=== PATIENT | male | born 1985 | race African-American/Black ===

== ENCOUNTER 2022-06-06 10:54 | Emergency (ER) | payer MEDICAID, SELFPAY ==
[2022-06-06 10:57] VITALS: BP 106/57; PULSE 74; RESP 16; TEMP 36.8; O2SAT 98; BMI 22.6
[2022-06-06 11:18] LABS: Appearance Urine Clear; Color Urine Yellow; Glucose Urine UA Negative (Negative); Leukocyte Esterase Urine Trace (Negative); Nitrite Urine Negative (Negative); Specific Gravity - Urine 1.025 (1.005-1.025); UMIC TRIGGER UACC YES; Urine Blood Negative (Negative); Urine Ketones Trace mg/dL (Negative); Urine Protein Negative (Neg-Trace)
[2022-06-06 11:24] LABS: Bacteria Urine None Seen (None Seen); Hyaline Casts Urine 0-2 /LPF (0-2); RBC Urine 0-2 /HPF (0-2); Squamous Epithelial Cell Urine 0-2 /HPF (0-2); WBC Urine 0-5 /HPF (0-5)
[2022-06-06] MEDS: Azithromycin 500 MG TABLET 1000 MG PO (12:01)
[2022-06-06] MEDS: cefTRIAXone sodium 500 MG, Lidocaine HCl 1 % MPF 1 ML IM (12:01)
--- NOTE | 2022-06-06 12:09 | ED.MALEGU ---
HPI - Male Genitourinary General Chief complaint: Urogenital-Male Stated complaint: STD testing Time Seen by Provider: 06/06/22 11:49 History of Present Illness HPI Narrative: Patient complains of penile discharge noted this morning, he did have unprotected sex with a new partners several days ago and is concerned he may have an STD, he denies any other lesions no sores no testicular pain or swelling no fever no vomiting no abdominal pain no other pains or discomforts Related Data Previous Rx's Medication Instructions Recorded doxycycline hyclate 100 mg capsule 100 mg PO BID 7 days #14 caps 06/06/22 Allergies Allergy/AdvReac Type Severity Reaction Status Date / Time No Known Allergies Allergy Verified 06/06/22 10:57 PMFSH Past Medical History Source: nursing notes reviewed Social History Social History Advance Directives: No Advance Directives Information Provided: No Physical Exam Vital Signs: Vital Signs: Last Vital Signs Temp 98.2 F 06/06/22 10:57 Pulse 74 06/06/22 10:57 Resp 16 06/06/22 10:57 BP 106/57 L 06/06/22 10:57 Pulse Ox 98 06/06/22 10:57 O2 Del Method 06/06/22 10:57 BMI result Body Mass Index 22.6 General appearance no distress The pharynx is clear no swelling or exudate Neck is supple Respiratory no distress Abdomen soft nontender Genital exam normal no discharge noted at this time no testicular swelling no lesions no vesicular rash Extremities full range of motion x4 Course Course Course Narrative: Patient is treated for probable GC or chlamydia with 1 dose if throw max and Rocephin, and is given a prescription for doxycycline for 7 days He is advised to refrain from sexual intercourse till all partners are asymptomatic and treated, and advised to informal all partners Medications Administered Discontinued Medications Generic Name Dose Route Start Last Admin Trade Name Freq PRN Reason Stop Dose Admin Azithromycin 1,000 mg 06/06/22 11:53 06/06/22 12:01 Azithromycin 500 Mg Tablet PO 06/06/22 11:54 1,000 mg ONCE ONE Administration Ceftriaxone Sodium 500 mg/ 0 mg 06/06/22 11:53 06/06/22 12:01 Lidocaine HCl 1 ml IM 06/06/22 11:54 1 kit ONCE ONE Administration Medical Decision Making Lab Data Labs: Lab Results 06/06/22 06/06/22 Range/Units 11:05 11:06 Urine Color Yellow Urine Appearance Clear Urine pH 6.0 (5.0-9.0) Ur Specific [place] 1.025 (1.005-1.025) Urine Protein Negative (Neg-Trace) mg/dL Urine Glucose (UA) Negative (Negative) mg/dL Urine Ketones Trace (Negative) mg/dL Urine Blood Negative (Negative) Urine Nitrite Negative (Negative) Ur Leukocyte Esterase Trace H (Negative) Urine RBC 0-2 (0-2) /HPF Urine WBC 0-5 (0-5) /HPF Ur Squamous Epith Cells 0-2 (0-2) /HPF Urine Bacteria None Seen (None Seen) Hyaline Casts 0-2 (0-2) /LPF Chlam trachomat DNA PCR NOT DETECTED (Not Detect.) N.gonorrhoeae DNA (PCR) NOT DETECTED (Not Detect.) Discharge Plan Discharge Clinical Impression: Exposure to STD Patient Disposition: Home, Self-Care Additional Instructions: You were treated with Rocephin and Zithromax in the ER for partial treatment of gonorrhea and chlamydia Use doxycycline antibiotic for a week to complete the treatment for further STD evaluation [facility] Inform all partners so they can be tested and treated if needed No sexual activity until treatment is completed after 1 week, and all partners have been testing treated Prescriptions: New doxycycline hyclate 100 mg capsule 100 mg PO BID 7 Days Qty: 14 0RF Interventions: ED Discharge Assessment Last Done: 06/06/22 12:20 Discharge Date/Time: 06/06/22 12:21
[2022-06-06 13:00] LABS: CT PCR NOT DETECTED (Not Detect.); NG PCR NOT DETECTED (Not Detect.)
== END 2022-06-06 12:21 | disposition home or self-care (01) ==
PROVIDERS: Emergency Provider Emergency Medicine
DX: Z20.2 Contact with and (suspected) exposure to infections with a predominantly sexual mode of transmission (principal); Z79.899 Other long term (current) drug therapy
CPT/HCPCS: 0353U; 81001; 96372; 99282; 99284; J0696